=== PATIENT | female | born 1995 | race Caucasian/White ===

== ENCOUNTER 2018-11-03 13:24 | Outpatient (CLI) | payer OTHER | END 2018-11-03 13:26 | LOC: LAB 13:24 | PROVIDERS: ATTEND Family Medicine | DX: Z20.2 Contact with and (suspected) exposure to infections with a predominantly sexual mode of transmission (principal); Z20.6 Contact with and (suspected) exposure to human immunodeficiency virus [HIV] | CPT/HCPCS: 36415; 86703; 86803; 87491; 87591 ==